=== PATIENT | female | born 1980 | race Caucasian/White ===

== ENCOUNTER 2018-02-09 14:47 | Emergency (ER) | payer BC, OTHER ==
[2018-02-09 15:05] VITALS: RESP 18
[2018-02-09] MEDS ORDERED: Sodium Chloride 0.9% 1,000 ML IV STA (15:37)
--- NOTE | 2018-02-09 15:57 | ED PDOC ---
HPI: Abdomen Time Seen by Provider: 02/09/18 15:11 Chief Complaint (Nursing): Abdominal Pain Chief Complaint (Provider): Abdominal Pain History Per: Patient History/Exam Limitations: no limitations Onset/Duration Of Symptoms: Hrs (This morning) Current Symptoms Are (Timing): Still Present Location Of Pain/Discomfort: Epigastric Associated Symptoms: Vomiting Additional Complaint(s): 37 year old female presents to the ED after she woke up this morning with epigastric abdominal pain. Patient thought it was her nerves because she was running a half marathon this morning. [place] through the race, she began having abdominal pain and vomited on the course but was able to finish the race. On her way home, she had to stop twice to use the bathroom and after getting home, she vomited twice. Patient states she never had pain like this before. Denies dysuria. Vomit was dark but did not resemble anything she has eaten. She also denies fever, blood in vomit or bowel movement, or hematuria. PMD: Dr. Godfrey at [facility] Past Medical History Reviewed: Historical Data, Nursing Documentation, Vital Signs Vital Signs: Last Vital Signs Temp 98.4 F 02/09/18 17:16 Pulse 60 02/09/18 17:16 Resp 18 02/09/18 17:16 BP 113/63 02/09/18 17:16 Pulse Ox 100 02/09/18 17:54 - Medical History PMH: No Chronic Diseases - Surgical History Surgical History: Tonsillectomy - Family History Family History: States: Unknown Family Hx - Home Medications Home Medications: Ambulatory Orders Medication Instructions Recorded Famotidine [Pepcid AC] 10 mg PO DAILY #30 tablet 02/09/18 - Allergies Allergies/Adverse Reactions: Allergies Allergy/AdvReac Type Severity Reaction Status Date / Time ciprofloxacin [From Cipro] Allergy RASH Verified 02/09/18 15:03 levofloxacin [From Levaquin] Allergy RASH Verified 02/09/18 15:03 Review of Systems ROS Statement: Except As Marked, All Systems Reviewed And Found Negative Constitutional: Negative for: Fever Gastrointestinal: Positive for: Vomiting, Abdominal Pain (epigastric). Negative for: Hematochezia Genitourinary Female: Negative for: Dysuria, Hematuria Physical Exam - Reviewed Nursing Documentation Reviewed: Yes Vital Signs Reviewed: Yes - Physical Exam Appears: Positive for: Non-toxic, No Acute Distress (tearful) Head Exam: Positive for: ATRAUMATIC, NORMOCEPHALIC Skin: Negative for: Normal Color (Superficial chafing which patient states is due to sports bra from race today) ENT: Positive for: Pharynx Is (without erythema, swelling, and exudate). Negative for: Other (Palpable lymph nodes) Neck: Positive for: Normal, Painless ROM Cardiovascular/Chest: Positive for: Regular Rate, Rhythm. Negative for: Murmur Respiratory: Positive for: Normal Breath Sounds. Negative for: Wheezing, Respiratory Distress Pulses-Dorsalis Pedis (L): 2+ Pulses-Dorsalis Pedis (R): 2+ Pulses-Radial (L): 2+ Pulses-Radial (R): 2+ Gastrointestinal/Abdominal: Positive for: Soft, Tenderness (Diffuse abdominal tenderness worse in the epigastric area and RUQ) Extremity: Positive for: Normal ROM. Negative for: Swelling, Other (Pain on calf squeeze) - Laboratory Results Result Diagrams: 02/09/18 16:05 02/09/18 16:05 - ECG O2 Sat by Pulse Oximetry: 100 (RA) Pulse Ox Interpretation: Normal Medical Decision Making Medical Decision Making: Initial Impression: Worsening right upper abdominal pain. Follow up for gastritis vs other abdominal pathology Initial Plan: --IV fluids based on running today and vomiting --Morphine for pain control --GI cocktail --Labs sent --Will consider CT abd/pelvis vs RUQ ultrasound depending on what labs show --Reassess patient 17:49 Patient initially refused pain medicine but accepted H2 hannah. Symptoms completely resolved and patient tolerated PO. Labs and UA normal and patient is requesting to go home. Patient will schedule an appointment with PMD for possible gastroenterology follow up and endoscopy for gastritis. Prescription for pepcid given. Scribe Attestation: Documented by Tyler Bhagat acting as a scribe for Danielle Hudson MD. Provider Scribe Attestation: All medical record entries made by the Scribe were at my direction and personally dictated by me. I have reviewed the chart and agree that the record accurately reflects my personal performance of the history, physical exam, medical decision making, and the department course for this patient. I have also personally directed, reviewed, and agree with the discharge instructions and disposition. Disposition - Clinical Impression Clinical Impression: Gastritis, Abdominal pain - Patient ED Disposition Is Patient to be Admitted: No - Disposition Disposition: Routine/Home Disposition Time: 17:49 Condition: IMPROVED Additional Instructions: Take Pepcid daily for Gastritis. Follow up with primary medical doctor and discuss the possible need for endoscopy. Return to the emergency department if symptoms worsen or if new symptoms develop. Prescriptions: Famotidine [Pepcid AC] 10 mg PO DAILY #30 tablet Instructions: Viral Gastroenteritis, Adult (DC) Forms: [employer] (Mauritian) Print Language: KAZAKH
[2018-02-09 16:09] LABS: BASO % 0.3 % (0.0-2.0); EOS % 0.1 % (0.0-4.0); HEMOGLOBIN 13.2 g/dL (12.0-16.0); LYMPH # 1.3 K/uL (1.0-4.3); LYMPH % 11.5 % (20.0-40.0); MEAN CELL VOLUME 88.3 fl (81.0-99.0); MEAN CORPUSCULAR HEMOGLOBIN 29.5 pg (27.0-31.0); MEAN CORPUSCULAR HGB CONC 33.3 g/dL (33.0-37.0); MEAN PLATELET VOLUME 11.4 fl (7.2-11.7); MONO # 0.6 K/uL (0.0-0.8); MONO % 5.7 % (0.0-10.0); NEUT # 9.4 K/uL (1.8-7.0); NEUT % 82.4 % (50.0-75.0); RBC 4.47 Mil/uL (3.80-5.20); WHITE BLOOD COUNT 11.4 K/uL (4.8-10.8)
[2018-02-09 16:10] LABS: VENOUS BLOOD GAS BASE EXCESS 1.2 mmol/L (0.0-2.0); VENOUS BLOOD GAS PCO2 41 mmHg (40-60); VENOUS BLOOD GAS PO2 32 mm/Hg (30-55); VENOUS BLOOD PH 7.41 (7.32-7.43)
[2018-02-09 16:18] LABS: ALB/GLOB RATIO 1.4 (1.0-2.1); ALBUMIN 4.7 g/dL (3.5-5.0); ALT/SGPT 21 U/L (9-52); AST/SGOT 27 U/L (14-36); BLOOD UREA NITROGEN 23 mg/dl (7-17); CALCIUM 10.5 mg/dL (8.4-10.2); GFR NON-AFRICAN AMERICAN > 60; LIPASE 129 U/L (23-300)
[2018-02-09 17:17] VITALS: BP 113/63; PULSE 60; TEMP 98.4
[2018-02-09 17:54] VITALS: O2SAT 100
--- NOTE | 2018-02-10 06:40 | CARD ---
APPROVED REPORT Date of service: 02/09/2018 EKG Measurement Heart [id number] <Conclusion> Sinus bradycardia Early repolarization Otherwise normal ECG
== END 2018-02-09 18:00 | disposition home or self-care (01) ==
LOC: H.ER 14:47
DX: K29.70 Gastritis, unspecified, without bleeding (principal)
CPT/HCPCS: 80053; 81025; 82803; 83690; 85025; 93005; 96361; 96374; 99284; J7030